=== PATIENT | male | born 1935 | race Caucasian/White ===

== ENCOUNTER → 2018-01-06 | Outpatient (CLI) | payer OTHER ==
[~2018-01-06] MED LIST: ALTACE1.25 MG; ALTACE5 M1 PO; AMBEREN; AMITRIPTYLINE H50 M2 PO; ASPIRIN325 PO; AUGMENTIN 875875 MG PO; AVEED750 MG/3 M; BUPRENORPHIN-N1 EACH SL; CALCIUM + VITA1 EACH; CELEXA 20 MG TA20 M1 PO; CHOLESTROL MED; COLACE100 MG PO; CRESTOR10 MG PO; DEPOTESTOSTERONE IJ; FINASTERIDE; FISH OIL 1,001000 M2 PO; GABAPENTIN 100100 MG PO; GABAPENTIN PO; GLUCOPHAGE XR500 MG PO; GLUMETZA500 PO; LEVOTHYROXIN0.075 MG PO; LEVOTHYROXINE0.05 MG PO; LIPITOR 20 MG T20 M1 PO; METFORMIN HCL500 MG PO; METHADONE HCL 110 M1 PO; METHADONE HCL 110 MG PO; METHADONE HCL40 MG PO; METHADONE HCL5 MG PO; METHADOSE10 MG PO; MIRALAX17 G1 PO; MIRALAX255 GM; NEURONTIN 300300 M1 PO; OMEGA-3 FISH O1 EAC3 PO; OXYCODONE-ACET1 EAC2 PO; PERCOCET; PERCOCET 10-321 EACH PO; PERCOCET 5-3251 EACH PO; PLAVIX 75 MG TA75 MG PO; PROSCAR 5MG TABL5 MG PO; PROTONIX40 M1 PO; REQUIP 1 MG TABL1 M1 PO; REQUIP0.5 MG PO; RESTORIL15 MG PO; SIMVASTATIN40 MG PO; SIMVASTATIN80 MG PO; SKELAXIN 800 M800 M1 PO; TEGRETOL XR100 MG PO; TOPAMAX 25 MG T25 M1 PO; TOPROL XL50 MG PO; TRAZADONE PO; TRAZODONE HCL100 MG PO; TRAZODONE HCL50 MG PO; TYLENOL325 MG PO; VENTOLIN HFA 1818 GM INH; VITAMIN D400 UNI1 PO; VYTORIN 10-801 EACH PO; WELLBUTRIN SR150 MG PO
--- NOTE | ~2018-01-06 | 2DMMODE ---
[facility] [place] [address] 2 D/M-MODE ECHOCARDIOGRAM Name: REGANSTORM [place] Room #: REG [facility]#: [id number] Admission: 01/06/18 Attend Phys: David Langford MD Discharge: Date of : 39 Date of Service: 01/06/18 1557 Report #: [id number] THIS REPORT FOR: //name// APPROVED REPORT Study performed: 01/06/2018 15:03:23 EXAM: Comprehensive 2D, Doppler, and color-flow Echocardiogram Patient Location: Echo lab Status: routine BSA: 1.98 HR: 81 bpm BP: 140/91 mmHg Other Information Study Quality: Adequate Indications CAD 2D Dimensions RVDd: 37.27 mm IVSd: 11.95 (7-11mm) LVOT Diam: 25.22 (18-24mm) LVDd: 38.67 mm PWd: 10.86 (7-11mm) Ascending Ao: 34.89 (22-36mm) LVDs: 27.94 (25-40mm) Aortic Root: 38.82 mm IVC: 9.00 mm Volumes Left Atrial Volume (Systole) Single Plane 4CH: 26.54 mL Single Plane 2CH: 43.84 mL LA ESV Index: 20.00 mL/m2 Aortic Valve AoV Peak Mj.: 0.89 m/s AO Peak Gr.: 3.15 mmHg LVOT Max P.15 mmHg LVOT Max V: 0.73 m/s PRESTON Vmax: 4.12 cm2 Mitral Valve E/A Ratio: 0.8 MV Decel. Time: 174.05 ms MV E Max Mj.: 0.55 m/s MV A Mj.: 0.66 m/s [facility] [address] [address] 2 D/M-MODE ECHOCARDIOGRAM Name: REGAN,STORM [place] Room #: REG [facility]#: [id number] Admission: 01/06/18 Attend Phys: David Langford MD Discharge: Date of : 39 Date of Service: 01/06/18 1557 Report #: [id number] PHT: 50.48 ms IVRT: 156.86 ms Pulmonary Valve PV Peak Mj.: 0.83 m/s PV Peak Gr.: 2.77 mmHg Pulmonary Vein P Vein S: 0.63 m/s P Vein A: 0.13 m/s P Vein D: 0.30 m/s P Vein A Dur.: 92.3 msec P Vein S/D Ratio: 2.10 Tricuspid Valve TR Peak Mj.: 2.58 m/s RAP Estimate: 5.00 mmHg TR Peak Gr.: 26.53 mmHg PA Pressure: 32.00 mmHg Left Ventricle The left ventricle is normal size. There is normal left ventricular wall thickness. The left ventricular systolic function is normal. The left ventricular ejection fraction is within the normal range. LVEF is 55-60%. Transmitral Doppler flow pattern suggests impaired LV relaxation. Right Ventricle The right ventricle is normal size. The right ventricular systolic function is normal. Atria The left atrium size is normal. Right atrium is at the upper limits of normal. Aortic Valve The Aortic valve is mildly sclerotic. No aortic regurgitation is present. There is no aortic valvular stenosis. Mitral Valve The mitral valve is normal in structure. Mild mitral regurgitation. No evidence of mitral valve stenosis. Tricuspid Valve The tricuspid valve is normal in structure. Mild to moderate tricuspid regurgitation. PAP is estimated at 32 mmHg. Pulmonic Valve Pulmonic valve is not well visualized. Trace to mild pulmonic regurgitation. [address] [address] 2 D/M-MODE ECHOCARDIOGRAM Name: STORM SPEARS [place] Room #: REG [facility]#: [id number] Admission: 01/06/18 Attend Phys: David Langford MD Discharge: Date of : 39 Date of Service: 01/06/18 1557 Report #: [id number] Great Vessels Aortic root is mildly dilated at 3.9 cm. IVC is normal in size and collapses >50% with inspiration. Pericardium There is no pericardial effusion. <Conclusion> The left ventricle is normal size. There is normal left ventricular wall thickness. The left ventricular systolic function is normal. Transmitral Doppler flow pattern suggests impaired LV relaxation. The right ventricle is normal size. The left atrium size is normal. The Aortic valve is mildly sclerotic. Mild mitral regurgitation. Mild to moderate tricuspid regurgitation. PAP is estimated at 32 mmHg. <ELECTRONICALLY SIGNED> By: David Langford MD 01/06/18 1557 1557 1557 David Langford MD /INF
== END ==
LOC: CV 12-16 10:41
DX: I08.1 Rheumatic disorders of both mitral and tricuspid valves (principal); I25.10 Atherosclerotic heart disease of native coronary artery without angina pectoris

== ENCOUNTER 2018-04-30 19:33 | Emergency (ER) | payer OTHER ==
[~2018-04-30] VITALS: Ht 175.3 cm; Wt 81.7 kg
[2018-04-30 20:04] LABS: ABSOLUTE NEUTROPHILS 4.1 thou/uL (1.4-8.2); BASOPHILS 0.8 % (0.0-2.0); HEMATOCRIT 37.9 % (42.0-52.0); HEMOGLOBIN 12.8 gm/dL (14.0-18.0); LYMPHOCYTES 44.6 % (24.0-44.0); MCH 29.7 pg (26.0-34.0); MCHC 33.8 g/dL (28.0-37.0); MONOCYTES 6.3 % (1.0-8.0); PLATELET COUNT 209 thou/uL (150-400); POLYS 47.3 % (36.0-66.0); RDW 13.1 % (10.5-14.5); WBC 8.7 thou/uL (4.0-11.0)
[2018-04-30 20:05] LABS: ANION GAP 13 mmol/L (7-16); BUN 27 mg/dL (7-18); CALCIUM 9.8 mg/dL (8.5-10.1); CHLORIDE 100 mmol/L (98-107); CO2 24 mmol/L (21-32); CREATININE 1.8 mg/dL (0.7-1.3); GLUCOSE 98 mg/dL (74-106); POTASSIUM 3.7 mmol/L (3.5-5.1); SODIUM 137 mmol/L (136-145)
[2018-04-30 20:12] LABS: SGOT 27 U/L (15-37); SGPT 35 U/L (30-65); TOTAL BILIRUBIN 0.3 mg/dL (<0.1-1.0); TOTAL PROTEIN 7.8 g/dL (6.4-8.2); TROPONIN-I <0.06 ng/mL (<0.06)
[2018-04-30 20:52] VITALS: BP 135/78
--- NOTE | 2018-05-01 08:02 | EKG ---
[address] [address] ELECTROCARDIOGRAM REPORT Name: STORM SPEARS [id number] Admission: 04/30/18 Attend Phys: Discharge: 04/30/18 Date of : 39 Report #: [id number] THIS REPORT FOR: //name// [facility] ED Test Date: 2018-04-30 Test Time: 20:13:10 Pat Name: STORM SPEARS Department: Room: Gender: M Trust Administrator: LIA : 1935 Requested By: Donovan Fan Order Number: [id number] MD: Cam Newton Measurements Intervals [place] Rate: 74 P: 53 NE: 189 QRS: 6 QRSD: 93 T: 36 QT: 550 QTc: 611 Interpretive Statements Sinus rhythm Borderline repolarization abnormality Compared to ECG 08/13/2015 22:18:06 T-wave abnormality no longer present Electronically Signed On 05-01-2018 8:02:33 WEB SITE ADMIN by Cam Newton [email or web address] <ELECTRONICALLY SIGNED> By: Cam Newton MD 05/01/18801 12 12 Cam Newton MD /MATTHIEU
== END 2018-04-30 20:53 | disposition home or self-care (01) ==
LOC: ER 19:33
PROVIDERS: Emergency Medicine
DX: R06.02 Shortness of breath (principal); F32.9 Major depressive disorder, single episode, unspecified; N40.0 Benign prostatic hyperplasia without lower urinary tract symptoms; I10 Essential (primary) hypertension; E78.5 Hyperlipidemia, unspecified; I25.10 Atherosclerotic heart disease of native coronary artery without angina pectoris; E11.9 Type 2 diabetes mellitus without complications; Z95.1 Presence of aortocoronary bypass graft; M19.90 Unspecified osteoarthritis, unspecified site; Z87.891 Personal history of nicotine dependence

== ENCOUNTER → 2019-01-08 | Outpatient (CLI) | payer OTHER ==
--- NOTE | 2019-01-08 15:50 | 2DMMODE ---
[facility] [place] [address] 2 D/M-MODE ECHOCARDIOGRAM Name: REGANSTORM [place] Room #: REG [facility]#: [id number] ������������� Admission: 01/08/19 ������������� Attend Phys: David Langford MD Discharge: ��� ������������� ��� Date of : 39 �������������������� �� Report #: [id number] �������� ��������������������������������������������[id number] THIS REPORT FOR: //name// APPROVED REPORT Study performed: 01/08/2019 14:27:49 EXAM: Comprehensive 2D, Doppler, and color-flow Echocardiogram Patient Location: Echo lab Status: routine BSA: 1.95 HR: 65 bpm Other Information Study Quality: Adequate Indications CAD 2D Dimensions RVDd: 34.94 mm IVSd: 11.94 (7-11mm) LVOT Diam: 21.87 (18-24mm) LVDd: 38.66 mm PWd: 12.19 (7-11mm) Ascending Ao: 35.64 (22-36mm) LVDs: 25.02 (25-40mm) Aortic Root: 38.58 mm IVC: 8.00 mm Volumes Left Atrial Volume (Systole) Single Plane 4CH: 28.10 mL Single Plane 2CH: 63.77 mL LA ESV Index: 24.00 mL/m2 Aortic Valve AoV Peak Mj.: 0.82 m/s AO Peak Gr.: 2.67 mmHg LVOT Max P.09 mmHg LVOT Max V: 0.72 m/s PRESTON Vmax: 3.32 cm2 Mitral Valve E/A Ratio: 0.8 MV Decel. Time: 281.15 ms MV E Max Mj.: 0.55 m/s MV A Mj.: 0.68 m/s [facility] [address] [place] [address] 2 D/M-MODE ECHOCARDIOGRAM Name: JEN SPEARSACE JT Room #: REG [facility]#: [id number] ������������� Admission: 01/08/19 ������������� Attend Phys: David Langford MD Discharge: ��� ������������� ��� Date of : 39 �������������������� �� Report #: [id number] �������� ��������������������������������������������[id number] MV PHT: 81.53 ms IVRT: 170.70 ms Pulmonary Valve PV Peak Mj.: 0.78 m/s PV Peak Gr.: 2.44 mmHg Pulmonary Vein P Vein S: 0.74 m/s P Vein A: 0.29 m/s P Vein D: 0.36 m/s P Vein A Dur.: 124.6 msec P Vein S/D Ratio: 2.06 Tricuspid Valve TR Peak Mj.: 2.36 m/s TR Peak Gr.: 22.35 mmHg Left Ventricle The left ventricle is normal size. Mild concentric left ventricular hypertrophy. The left ventricular systolic function is normal. The left ventricular ejection fraction is within the normal range. LVEF is 55-60%. Mild diastolic dysfunction is present (impaired relaxation pattern). Right Ventricle Right ventricle is dilated. The right ventricular systolic function is normal. Atria The left atrium size is normal. Right atrium is mildly dilated. Aortic Valve Mild aortic valve sclerosis. No aortic regurgitation is present. There is no aortic valvular stenosis. Mitral Valve The mitral valve is normal in structure. Mild to moderate mitral regurgitation. No evidence of mitral valve stenosis. Tricuspid Valve The tricuspid valve is normal in structure. Moderate tricuspid regurgitation. PAP is estimated at 27-32 mmHg. Pulmonic Valve The pulmonary valve is normal in structure. Trace pulmonic regurgitation. [facility] [place] [address] [place] [address] 2 D/M-MODE ECHOCARDIOGRAM Name: STORM SPEARS [place] Room #: REG [facility]#: [id number] ������������� Admission: 01/08/19 ������������� Attend Phys: David Langford MD Discharge: ��� ������������� ��� Date of : 39 �������������������� �� Report #: [id number] �������� ��������������������������������������������[id number] Great Vessels Aortic root is mildly dilated at 3.9 cm. IVC is normal in size but only visualized with deep inspiration, unable to visualize collapse. Pericardium There is no pericardial effusion. <Conclusion> The left ventricle is normal size. Mild concentric left ventricular hypertrophy. The left ventricular systolic function is normal. Mild diastolic dysfunction is present (impaired relaxation pattern). Right ventricle is dilated. Mild aortic valve sclerosis. Mild to moderate mitral regurgitation. Moderate tricuspid regurgitation. PAP is estimated at 27-32 mmHg. ��������������������������������������������� <ELECTRONICALLY SIGNED> ���������������������������������������� By: David Langford MD ��������������������������������������������� 01/08/19 [phone] David Langford MD /INF
== END ==
LOC: CV 09:28
DX: I08.3 Combined rheumatic disorders of mitral, aortic and tricuspid valves (principal); I25.10 Atherosclerotic heart disease of native coronary artery without angina pectoris

== ENCOUNTER → 2020-01-01 | Outpatient (CLI) | payer MEDICARE | LOC: SJCVCIMAG 07:43 | PROVIDERS: ATTEND Internal Medicine Cardiovascular Disease | DX: I25.810 Atherosclerosis of coronary artery bypass graft(s) without angina pectoris (principal); I10 Essential (primary) hypertension; R60.9 Edema, unspecified; E78.00 Pure hypercholesterolemia, unspecified; Z79.82 Long term (current) use of aspirin; Z79.899 Other long term (current) drug therapy; E78.5 Hyperlipidemia, unspecified; Z87.891 Personal history of nicotine dependence; E11.9 Type 2 diabetes mellitus without complications; Z95.1 Presence of aortocoronary bypass graft ==

== ENCOUNTER 2020-02-03 06:37 | Inpatient (IN) | payer OTHER ==
[~2020-02-03] VITALS: Ht 175.3 cm; Wt 79.4 kg
--- NOTE | ~2020-02-03 | HC ---
[facility] [place] [address] CONSULTATION Name: STORM SPEARS Room #: 210-P ADM IN M.R.#: [id number] Admission: 02/03/20 Attend Phys: Kali Dunn MD Discharge: Date of : 39 Report #: [id number] THIS REPORT FOR: cc: Evelyn Winkler MD, Jennifer S. MD Khosla,Asaf Ang MD ~ DATE OF SERVICE: 02/04/2020 HISTORY OF PRESENT ILLNESS: This is an 84-year-old male patient who was evaluated by me for altered mental status. I reviewed the records in the patient's computer and I called and talked to Dr. Dunn, the admitting physician. There are multiple notes in the computer and I reviewed that to some extent. It looks like this patient came to Emergency Room with shortness of breath. Neurological consultation is requested because he also has altered mental status. He is also being seen by Cardiology for the time being. Some of the records indicate he has a dementia in the baseline. He also has narcotic dependence. The notes of pain management were reviewed in that regard. 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 He has trouble with narcotics and he has been on methadone and there also has been problem with methadone in this patient. He does have history of headache. He could not provide much rest of the history and I could get it only from the record. Looks like he has atrial fibrillation and for which, Cardiology has been consulted. He has a prior history of coronary artery disease and dyspnea. He has a history of hypertension. He takes metformin for the diabetes. He has baseline gait instability and he has a history of spinal stenosis. He lives with multiple family members. PAST MEDICAL HISTORY: Positive for spinal stenosis, for which, he takes methadone. FAMILY HISTORY: Unremarkable. SOCIAL HISTORY: The patient lives with multiple members of the family in an apartment. He does not drink any alcohol. PHYSICAL EXAMINATION: Indicates he is alert. He is responsive. It takes him long time to answer questions. He could not tell me the exact date, but he knew the month. It took him a while to name the president and took him some time to tell me what hospital he is in. In spite of his history of pituitary tumor, his cranial nerve examination including visual field looks unremarkable. He moves all 4 extremities. I tried to do position sense on him. He did not understand the instructions most of the time. He did cerebellar sign, but I could not look [facility] [address] [place] [address] CONSULTATION Name: STORM SPEARS [place] Room #: 210-P [facility] IN M.R.#: [id number] Admission: 02/03/20 Attend Phys: Kali Dunn MD Discharge: Date of : 39 Report #: [id number] at the patient's fundus. There is no meningeal sign. I tried to do the reflexes. He could not relax. I do not know why he was so tense. Cardiac examination indicates he has been diagnosed with atrial fibrillation. No respiratory difficulty was noticed. His blood pressure is 137/76, respiration 16, pulse 71, temperature is 97.4. LABORATORY DATA: White count is 6.7. He did have no imaging study in the brain. IMPRESSION AND PLAN: I discussed with him that he does appear to have cognitive deficit. I will go ahead and do an MRI. He already got contrast multiple times, so I will do it without contrast. We will see if it shows any pathology or whether the patient is developing dementia. He will need further workup for one way or another, but main management still is going to be the management of his cardiac conditions including atrial fibrillation, which is being done by other physician. More than 50 minutes of time was spent taking care of this patient today and majority of that time was spent counseling and coordinating. By: 1243 1405 Asaf Nascimento MD /nt
--- NOTE | ~2020-02-03 | EMS ---
[facility] [address] [place] [address] EMS Patient Care Report Name: STORM SPEARS Room #: 210-P [facility] IN M.R.#: [id number] Admission: 02/03/20 Attend Phys: Kali Dunn MD Discharge: 02/06/20 Date of : 37 Report #: [id number] THIS REPORT FOR: //name// Report Transmitted: 02/07/2020 20:47 EMS Care Summary [place], [place]/[facility] Incident [id number] @ 02/03/2020 05:34 Incident Location [address] [place] [address] Patient LIANET SPEARS Male, 84 Years 1935 Patient Address [address] [place] [address] Patient History Brain Tumor, Patient Allergies No known allergies, Patient Medications Tylenol, Metoprolol, Percocet, Methadone, Chief Complaint Rapid atrial fib Disposition Transported No Lights/[place] Dispatch Reason Breathing Problem Transported To [facility] Narrative Called to the scene for SOB. Upon arrival, P43 on the scene. Pt was ELLISON x 3 lying in bed, pale and c/o being weak and SOB. He also stated he has a [facility] [address] [place] [address] EMS Patient Care Report Name: STORM SPEARS Room #: 210-P DIS IN Rafa.#: [id number] Admission: 02/03/20 Attend Phys: Kali Dunn MD Discharge: 02/06/20 Date of : 37 Report #: [id number] headache. He said he was fine when he went to bed and woke up this way. He said he has a brain tumor that they are no longer treating other than with pain management. He requested transport to [facility]. Pt was moved to the EMS cot and loaded into the ambulance w/o incident. Vitals obtained. 12 Lead showed rapid a-fib with no ST elevation. The A-fib would convert on its own. 18g IV and D-stick. Vitals repeated. O2 cont. En route: pt would go in and out of rapid A-fib, he did convert on his own. RR to [facility] ER. Arrived: pt taken to ER #6 and moved to their bed w/o incident. Pt care & report to ER staff. Initial Vitals @06:14Glucose: 125, @06:11P: 282,CO: 0,SpO2: 98, @06:05P: 271, @06:08P: 76, @06:15P: 162,SpO2: 99, @06:02P: 166,SpO2: 84, @06:23P: 163,R: 16,BP: 175/106,Pain: 0/10,GCS: 15,CO: 0,SpO2: 100,Revised Trauma: 12,NH Suspected: false @06:04P: 86,R: 14,BP: 148/89,Pain: 0/10,GCS: 15,SpO2: 92,Revised Trauma: 12, @06:05P: 191,GCS: 15,SpO2: 99,NH Suspected: false @06:08P: 73,R: 16,BP: 160/87,Pain: 0/10,GCS: 15,SpO2: 100,Revised Trauma: 12,NH Suspected: false @06:20P: 182,CO: 0,SpO2: 98, @06:16P: 173,SpO2: 98, Assessments @05:52MENTAL:Person Oriented,Time Oriented,Event Oriented,Place Oriented,SKIN:Pale,HEENT:LUNG SOUNDS:ABDOMEN:PELVIS//GI:EXTREMITIES:Left Arm: No Abnormalities,Right Arm: No Abnormalities,Left Leg: No Abnormalities,Right Leg: No Abnormalities,PULSE:Radial: 1+ Thready,NEURO:No Abnormalities, Impression Acute Respiratory Distress (Dyspnea) Procedures @05:52ALS AssessmentResponse: UnchangedSucceeded@06:00StretcherResponse: Unchanged@PTAOxygen FlowRate: 4 Device: Nasal Cannula (NC) Response: ImprovedSucceeded@06:033-Lead ECGResponse: UnchangedSucceeded@06:0812-Lead ECGResponse: UnchangedSucceeded@06:0512-Lead ECGResponse: UnchangedSucceeded@06:12Saline Lock 8cc (18 ga) Site: Antecubital-LeftResponse: UnchangedSucceeded@06:10Saline Lock cc (18 ga) Site: Antecubital-LeftResponse: UnchangedFailed Timeline MATERIAL INSPECTOR,Oxygen FlowRate: 4 Device: Nasal Cannula (NC) Response: ImprovedSucceeded, 05:33,Call Received [address] [address] EMS Patient Care Report Name: JEN SPEARSACE [place] Room #: 210-P [facility] IN M.R.#: [id number] Admission: 02/03/20 Attend Phys: Kali Dunn MD Discharge: 02/06/20 Date of : 39 Report #: [id number] 05:33,Dispatch Notified 05:34,Dispatched 05:35,En Route 05:50,On Scene 05:52,At Patient 05:52,ALS Assessment,Response: UnchangedSucceeded, 06:00,Stretcher,Response: Unchanged 06:02,BP: / M,PULSE: 166,RR: R,SPO2: 84 Ox,ETCO2: ,BG: ,PAIN: ,GCS: , 06:03,3-Lead ECG,Response: UnchangedSucceeded, 06:04,BP: 148/89 M,PULSE: 86,RR: 14 R,SPO2: 92 Ox,ETCO2: ,BG: ,PAIN: 0,GCS: 15, 06:05,12-Lead ECG,Response: UnchangedSucceeded, 06:05,BP: / M,PULSE: 191,RR: R,SPO2: 99 Ox,ETCO2: ,BG: ,PAIN: ,GCS: 15, 06:05,BP: / M,PULSE: 271,RR: R,SPO2: Ox,ETCO2: ,BG: ,PAIN: ,GCS: , 06:08,BP: 160/87 M,PULSE: 73,RR: 16 R,SPO2: 100 Ox,ETCO2: ,BG: ,PAIN: 0,GCS: 15, 06:08,12-Lead ECG,Response: UnchangedSucceeded, 06:08,BP: / M,PULSE: 76,RR: R,SPO2: Ox,ETCO2: ,BG: ,PAIN: ,GCS: , 06:10,Saline Lock cc 18 ga Site: Antecubital-Left,Response: UnchangedFailed, 06:11,BP: / M,PULSE: 282,RR: R,SPO2: 98 Ox,ETCO2: ,BG: ,PAIN: ,GCS: , 06:12,Saline Lock 8cc 18 ga Site: Antecubital-Left,Response: UnchangedSucceeded, 06:14,BP: / M,PULSE: ,RR: R,SPO2: Ox,ETCO2: ,B,PAIN: ,GCS: , 06:15,Depart Scene 06:15,BP: / M,PULSE: 162,RR: R,SPO2: 99 Ox,ETCO2: ,BG: ,PAIN: ,GCS: , 06:16,BP: / M,PULSE: 173,RR: R,SPO2: 98 Ox,ETCO2: ,BG: ,PAIN: ,GCS: , 06:20,BP: / M,PULSE: 182,RR: R,SPO2: 98 Ox,ETCO2: ,BG: ,PAIN: ,GCS: , 06:23,BP: 175/106 M,PULSE: 163,RR: 16 R,SPO2: 100 Ox,ETCO2: ,BG: ,PAIN: 0,GCS: 15, 06:46,At Destination 06:55,Call Closed Disclaimer v1.1 Copyright 2020 [employer] This EMS Care Summary contains data elements from the applicable legal record (which may be displayed differently). It is designed to provide pertinent information for the following purposes: continuity of care, clinical quality, and state data reporting. The complete legal record is available to ED staff and administrators of the receiving hospital in [employer]'s Patient Tracker. All data is provided "as is."
[2020-02-03 06:38] VITALS: BP 143/86
[2020-02-03] MEDS ORDERED: DONEPEZIL HCL 55 M1 PO (06:52)
[2020-02-03] MEDS ORDERED: SERTRALINE HCL50 MG PO (06:53)
[2020-02-03] MEDS ORDERED: GLUMETZA500 PO (06:58)
[2020-02-03] MEDS ORDERED: GLUCOPHAGE1000 MG PO (06:58)
[2020-02-03] MEDS ORDERED: QUETIAPINE FUMA25 MG PO (06:59)
[2020-02-03] MEDS ORDERED: METHADONE HCL 110 MG PO (07:00)
[2020-02-03 07:01] LABS: HEMATOCRIT 33.7 % (42.0-52.0); HEMOGLOBIN 11.1 gm/dL (14.0-18.0); MCH 29.5 pg (26.0-34.0); MCV 89.6 fL (80.0-100.0); RBC 3.76 mil/uL (4.50-6.00); RDW 13.3 % (10.5-14.5); WBC 6.6 thou/uL (4.0-11.0)
[2020-02-03 07:20] LABS: ANION GAP 13 mmol/L (7-16); BUN 25 mg/dL (7-18); CALCIUM 9.9 mg/dL (8.5-10.1); CHLORIDE 102 mmol/L (98-107); CO2 25 mmol/L (21-32); CREATININE 1.6 mg/dL (0.7-1.3); GLUCOSE 118 mg/dL (74-106); POTASSIUM 3.8 mmol/L (3.5-5.1); SODIUM 140 mmol/L (136-145)
[2020-02-03 07:28] LABS: TROPONIN-I <0.06 ng/mL (<0.06)
--- NOTE | 2020-02-03 07:40 | NUR ---
PT & REPORTED TO REGISTRATION THAT PT COPER HAND'S LICENSE AND INS CARD WERE GIVEN TO EMS. 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 CARDS WERE NOT FOUND. EMS CALL CENTER NOTIFIED. SANJUANITA AT EMS CALL CENTER RETURNED CALL, STATED THAT PER EMS THEY WERE GIVEN WALLET, STATES THEY NEVER REMOVED ITEMS AND RETURNED WALLET TO PT. PATIENT'S HAS WALLET IN HER PURSE AT BEDSIDE. ENCOURAGED PATIENT AND TO CHECK ALL POCKETS, PURSE, AND WALLET. THEY STATE THAT THEY KNOW CARDS ARE NOT THERE. ASKED IF POSSIBLE THAT CARDS MAY HAVE BEEN SET DOWN AT HOME OR IF RETURNED AND IN CAR THAT DROVE? ADAMANT THAT CARDS ARE NOT THERE. CONTINUED TO ENCOURAGE THEM TO LOOK IN PERSONAL BELONGINGS FOR CARDS.
[2020-02-03 07:56] LABS: APTT 30.6 Seconds (24.5-32.8); INR 1.1; PROTIME 11.1 Seconds (9.3-11.4)
[2020-02-03 09:52] VITALS: BP 162/93
--- NOTE | 2020-02-03 10:50 | 2DMMODE ---
[facility] [place] [address] 2 D/M-MODE ECHOCARDIOGRAM Name: STORM SPEARS Room #: 210-P ADM IN M.R.#: [id number] Admission: 02/03/20 Attend Phys: Kali Dunn MD Discharge: Date of : 39 Report #: [id number] THIS REPORT FOR: cc: Evelyn Winkler MD, Jennifer S. MD Park, Jin S. MD ~ APPROVED REPORT Study performed: 02/03/2020 09:46:10 EXAM: Comprehensive 2D, Doppler, and color-flow Echocardiogram Patient Location: ER Status: routine BSA: 1.98 HR: 72 bpm BP: 162/93 mmHg Rhythm: NSR Other Information Study Quality: Adequate Technically limited study due to lots of patient movement. Indications Possible Afib. Hx: CABG, stents, HTN, HLP, DM. 2D Dimensions RVDd: 34.32 mm IVSd: 9.68 (7-11mm) LVOT Diam: 19.71 (18-24mm) LVDd: 48.33 mm PWd: 8.88 (7-11mm) Ascending Ao: 36.25 (22-36mm) LVDs: 31.70 (25-40mm) Aortic Root: 38.70 mm Volumes Left Atrial Volume (Systole) Single Plane 4CH: 35.54 mL Single Plane 2CH: 41.13 mL LA ESV Index: 21.00 mL/m2 Aortic Valve AoV Peak Mj.: 0.94 m/s AO Peak Gr.: 3.55 mmHg LVOT Max P.68 mmHg [facility] [address] [place] [address] 2 D/M-MODE ECHOCARDIOGRAM Name: STORM SPEARS [place] Room #: 210-P [facility] IN [facility]#: [id number] Admission: 02/03/20 Attend Phys: Kali Dunn MD Discharge: Date of : 39 Report #: [id number] LVOT Max V: 0.82 m/s PRESTON Vmax: 2.65 cm2 Mitral Valve E/A Ratio: 0.7 MV Decel. Time: 321.36 ms MV E Max Mj.: 0.57 m/s MV A Mj.: 0.77 m/s MV PHT: 93.19 ms IVRT: 89.97 ms Pulmonary Valve PV Peak Mj.: 0.79 m/s PV Peak Gr.: 2.52 mmHg Pulmonary Vein P Vein S: 0.71 m/s P Vein A: 0.26 m/s P Vein D: 0.56 m/s P Vein A Dur.: 115.3 msec P Vein S/D Ratio: 1.27 Tricuspid Valve TR Peak Mj.: 2.39 m/s TR Peak Gr.: 23.00 mmHg Left Ventricle The left ventricle is normal size. There is normal LV segmental wall motion. There is normal left ventricular wall thickness. Left ventricular systolic function is normal. LVEF is 55-60%. Mild diastolic dysfunction is present (impaired relaxation pattern). Right Ventricle The right ventricle is normal size. The right ventricular systolic function is normal. Atria The left atrium size is normal. The right atrium size is normal. Aortic Valve The aortic valve is normal in structure; mildly calcified. No aortic regurgitation is present. There is no aortic valvular stenosis. Mitral Valve Mitral valve leaflets are midly calcified. Moderate mitral regurgitation. [facility] [place] [address] 2 D/M-MODE ECHOCARDIOGRAM Name: STORM SPEARS [place] Room #: 210-P [facility] IN M.R.#: [id number] Admission: 02/03/20 Attend Phys: Kali Dunn MD Discharge: Date of : 39 Report #: [id number] Tricuspid Valve The tricuspid valve is normal in structure. Mild to moderate tricuspid regurgitation. Estimated PAP is 25mmHg plus the right atrial pressure. Pulmonic Valve The pulmonary valve is normal in structure. Mild pulmonic regurgitation. Great Vessels Aortic root is mildly dilated (3.9cm). The ascending aorta is normal in size. IVC is not well visualized. Pericardium There is no pericardial effusion. <Conclusion> The left ventricle is normal size. Left ventricular systolic function is normal. Mild diastolic dysfunction is present (impaired relaxation pattern). The right ventricle is normal size. The left atrium size is normal. The aortic valve is normal in structure; mildly calcified. Moderate mitral regurgitation. Mild to moderate tricuspid regurgitation. Estimated PAP is 25mmHg plus the right atrial pressure. <ELECTRONICALLY SIGNED> By: David Langford MD 02/03/201049 49 49 David Langford MD /INF
[2020-02-03 11:16] VITALS: BP 144/94
--- NOTE | 2020-02-03 12:05 | NUR ---
NEW ADMIT FROM ED FOR CHEST PAIN AND SOB. PT ALERT TO SELF AND PLACE, HX OF DEMENTIA, CHRONIC HEADACHES. UP WITH AX1 TO BATHROOM. FALL PRECATIONS IN PLACE. DENIES CHEST PAIN, DENIES SOB. ADMISSION COMPLETED, CONSCENT SIGNED, BED ALARM SET. CALL LIGHT IN REACH.
--- NOTE | 2020-02-03 12:07 | EKG ---
[facility] [place] [address] ELECTROCARDIOGRAM REPORT Name: STORM SPEARS Room #: 210-P ADM IN M.R.#: [id number] Admission: 02/03/20 Attend Phys: Kali Dunn MD Discharge: Date of : 39 Report #: [id number] THIS REPORT FOR: cc: Evelyn Winkler MD, Jennifer S. 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 : 1935 Requested By: Kali Dunn Order Number: [id number] MD: Emigdio Simpson Measurements Intervals [place] Rate: 74 P: MS: QRS: 26 QRSD: 98 T: 26 QT: 402 QTc: 446 Interpretive Statements NSR, artifact Nonspecific T abnormalities, anterior leads Baseline wander in lead(s) V4 Compared to ECG 04/30/2018 20:13:10 T-wave abnormality now present Electronically Signed On 02-03-2020 12:06:54 CDT by Emigdio Simpson [email or web address] <ELECTRONICALLY SIGNED> By: Emigdio Simpson MD, FACC 02/03/20 1206 0643 Emigdio Simpson MD, FACC /EPI
[2020-02-03 15:32] VITALS: BP 139/88
--- NOTE | 2020-02-03 16:04 | NUR ---
Patient admits with SOA. Patient with inoperable brain tumor. at bedside. patient and live in independent apt with option of ramp or steps to enter. reports he usually does steps for excercise. Patient uses a cane for ambulation. reports her sister living with her and her dtr in law with grandson. She reports 5 people in apt with 2 cats and dog. drives. Patient independent with bathing and dressing. reports patient could use assistance with bathing. No bathbench but do have grabbar. Patient may benefit from therapy evals prior to dc home. PCP Dr Plunkett from [facility].
[2020-02-03 19:20] VITALS: BP 127/90
--- NOTE | 2020-02-04 03:29 | NUR ---
ASSESSMENTS CHARTED, MEDS CHARTED GIVEN. PATIENT RESTING IN BED DURING SHIFT. PATIENT STILL HAVING TREMORS. PATIENT RECEIVED MULTIPLE METHADONE DOSES TODAY. HE HAD RUN OUT OF HOME DOSES. DENIES PAIN. FALL PRECAUTIONS IN PLACE DURING SHIFT.
[2020-02-04 04:30] VITALS: BP 119/80
[2020-02-04 07:10] VITALS: BP 142/80
[2020-02-04 09:34] LABS: HEMATOCRIT 35.3 % (42.0-52.0); HEMOGLOBIN 11.5 gm/dL (14.0-18.0); MCH 29.5 pg (26.0-34.0); MCHC 32.5 g/dL (28.0-37.0); MCV 90.6 fL (80.0-100.0); RBC 3.9 mil/uL (4.50-6.00); WBC 6.7 thou/uL (4.0-11.0)
[2020-02-04 09:47] LABS: CREATININE 1.4 mg/dL (0.7-1.3); MAGNESIUM 1.3 mg/dL (1.8-2.4); POTASSIUM 3.4 mmol/L (3.5-5.1)
[2020-02-04 12:12] VITALS: BP 137/76
[2020-02-04 15:18] VITALS: BP 157/93
--- NOTE | 2020-02-04 16:01 | NUR ---
ASSUMED CARE AT CHANGE OF SHIFT. ALERT X3 FORGETFUL, CHRONIC PAIN MANAGE WITH SCHEDULED MEDICATIONS, NSR ON TELE. NOTED ELEVATED HEART RATE WORKING WITH THERAPY, NOTIFIED PHYSICIAN. UP WITH AX1 WITH GATE BELT AND CANE. MRI COMPLETED SEE REPORT. SLIGHT TREMORS THIS MORNING. PRN 2L NASAL CANNULA. PT VOICED HE DID NOT SLEEP MUCH LAST NIGHT. CALL LIGHT AND PERSONAL ITEMS IN REACH. REMAINS ON FALL PRECAUTIONS. REPORTED OF TO MIREYA NAVARRETE.
--- NOTE | 2020-02-04 18:56 | NUR ---
ASSUMED CARE OF PATIENT APPROX 1300. PT A&OX4, VSS, NO PAIN. PATIENT SAT AT 98% ON ROOM AIR. SR ON TELE MONITOR. AT BEDSIDE. NO C/O SOA OR CHEST PAIN. NO SIGNS OF DISTRESS. WILL CONTINUE TO MONITOR.
[2020-02-04 20:15] VITALS: BP 143/89
[2020-02-05] VITALS (9 sets, daily range): BP systolic 111–128; BP diastolic 70–81
--- NOTE | 2020-02-05 02:23 | NUR ---
ASSUMED CARE OF PATIENT AT 1900. PATIENT DENIES CHEST PAIN OR SOA ASSESSMENTS UNREMARKABLE. PATIENT CALLS APPROPRIATELY AND IS SBA WITH CANE TO AMBULATE.
--- NOTE | 2020-02-05 13:57 | NUR ---
Pooling Operator visited with the pt and his spouse at bedside. The attending has consulted acute rehab d/t recent falls, weakness and pituitary tumor growth. Pt's does not feel he is strong enough to return directly home and would support him going to acute rehab. [facility] is out of network. Referrals called and faxed to [facility] and [facility]. [facility] is in network and is evaling him. If they can accept they will submit for auth. SNF and HH options also reveiwed with them. SNF is not an option as they are not allowing visitors d/t the pandemic. HH would be acceptable and they would prefer [facility] if they accept the ins plan. DC marketing planner to check with [facility] for possible HH referral if acute rehab is denied. ENDO consult pending this afternoon. The pt's gdtr is staying with them and could provide some supervision while his is at work should they end up going home with hh.
--- NOTE | 2020-02-05 15:27 | NUR ---
FAXED REFERRAL TO [facility] SPOKE WITH ANJELICA IN ADM SHE RECEIVED REFERRAL AND WILL ACCEPT AND WILL SUBMIT FOR AUTH. [facility] IS AT CAPACITY AT PT'S HOME LOCATION.
--- NOTE | 2020-02-05 16:46 | NUR ---
RECEIVED PT'S CARE AROUND 0735; PT. ON BED; RESTING WITH EYES CLOSED; EQUAL CHEST RISING NOTICIED; SR ON THE MONITOR; DURING AM ASSESSMENT PT. AOX4; NO C/O PAIN; EATING & DRINKING; PHYSICIAN NOTIFIED; FLUIDS D/C; PER PHYSICIAN PT. MIGHT NEED REHAB OR SNIF; CONSULT FOR DR. BERNSTEIN ON PLACED; DURING THE AFTERNOON PT'S NOTIFIED NURSE THAT PT. DOES NOT WANT SNIF OR REHAB & [facility]; SHEET METAL ERECTOR AND PHYSICIAN NOTIFIED; NO NEW ORDERS; PER PHYSICIAN PT. WILL BE D/C LATER ON THE DAY; PT. & NOTIFIED; ST. UNDERSTANDING; ASSESSMENT CHARGED; FOLLOWING POC; WILL WORK ON D/C PAPERS WHEN ORDER ON PLACED;
--- NOTE | 2020-02-05 17:46 | NUR ---
Rec'd call from unit RN indicating pt is refusing acute rehab and wants to go home with hh. agreeable. [facility] notified to cancel auth request. Hh referral send to [facility] as [facility] is not able to staff it. Karl cruz to fax orders in am. Pt dcing home this evening with his .
[2020-02-05 20:06] LABS: CORTISOL RANDOM 6.2 ug/dL (()); LUTEINIZING HORMONE (LH) 0.6 mIU/mL (1.7-8.6); PROLACTIN 11.8 ng/mL (4.0-15.2)
[2020-02-05 21:05] LABS: TESTOSTERONE* < 3 ng/dL (264-916)
[2020-02-06 04:45] VITALS: BP 117/65
--- NOTE | 2020-02-06 06:39 | NUR ---
pt resting off and on thru the noc, voiding per urinal, scheduled methadone given for pain, vss, hopes to go home today, will con't to monitor per ppoc.
[2020-02-06 07:45] VITALS: BP 111/65
[2020-02-06] MEDS ORDERED: METOPROLOL SUCC50 MG PO (09:14)
[2020-02-06 09:30] VITALS: BP 102/62; BP 103/64; BP 90/59
--- NOTE | 2020-02-06 11:53 | NUR ---
ASSUMMED PT CARE AT APPROXIMATELY 0700. PT A&O X4. ASSESSMENT CHARTED. FALL PRECAUTIONS IN PLACE. PT DENIES HAVING CHEST PAIN. PT DENIES HAVING SOB. PT DENIES HAVING ACUTE PAIN. PT DISCHARGING HOME C HOME HEALTH. DISCHARGE EDUCATION AND INFORMATION GIVEN. PT AND PT'S SPOUSE STATED UNDERSTANDING AND DENIED HAVING FURTHER QUESTIONS. VITAL SIGNS STABLE. BLOOD SUGAR STABLE. PT RECEIVING HOSPITAL TRANSPORT OFF UNIT. IV DC. TELE DC. PT COMFORTABLE. PT DENIES HAVING FUTHER CONCERNS.
--- NOTE | 2020-02-06 12:21 | HC ---
[facility] [place] [address] CONSULTATION Name: STORM SPEARS Room #: 210-P ADM IN M.R.#: [id number] Admission: 02/03/20 Attend Phys: Kali Dunn MD Discharge: Date of : 39 Report #: [id number] THIS REPORT FOR: cc: Evelyn Winkler MD, Jennifer S. MD Al-Mubaslat, Ahmad MD ~ DATE OF SERVICE: 02/05/2020 ENDOCRINE CONSULTATION NOTE CONSULTING PHYSICIAN: Dr. Dunn. REASON FOR CONSULTATION: Pituitary mass. HISTORY OF PRESENT ILLNESS: This is an 84-year-old male patient who presented on the day of admission with complaints of shortness of breath as well as cough. He was admitted for further care and monitoring for his immediate complaints as well as his various medical issues. The patient's medical background is significant for a pituitary mass for which he had a surgery, specifically transsphenoidal surgery 15 years ago. His indicates that this was a pituitary adenoma and that he needed replacement with steroids and levothyroxine briefly afterwards, but not lot technician. She also notes that he has been on extended testosterone replacement therapy that was stopped not too long ago by his primary care physician, but could not elaborate on why that stoppage took place. While the patient was being evaluated, brain study uncovered the finding of a pituitary mass and hence this consultation. The patient has not appreciated recent issues with diplopia, loss of vision, visual field defects, nausea, vomiting, imbalance, seizure activity, but he does have chronic issues with severe intermittent headaches for which he receives chronic pain management. The patient has not had major weight changes, excessive sweating, significant shifts in blood pressure control, skin or hair changes, breast tenderness or nipple discharge. REVIEW OF SYSTEMS: CONSTITUTIONAL: Fatigue, tiredness. No weight changes, fever or chills. HEENT: Negative for sore throat, sinus pain or ear drainage. PULMONARY: Shortness of breath and cough without hemoptysis. CARDIAC: Occasional palpitations, lightheadedness, but not syncope or chest pain. GASTROINTESTINAL: Negative for abdominal pain, nausea, vomiting or changes in bowel movement frequency. [facility] [address] [place] [address] CONSULTATION Name: STORM SPEARS [place] Room #: 210-P [facility] IN .R.#: [id number] Admission: 02/03/20 Attend Phys: Kali Dunn MD Discharge: Date of : 37 Report #: [id number] NEUROLOGY: Negative for loss of consciousness, seizure activity, but noted for frequent headaches. Otherwise, his review of systems is noncontributory other than those mentioned in HPI. PAST MEDICAL HISTORY: 1. Pituitary adenoma operated on in 2004. 2. Depression. 3. Benign prostatic hypertrophy. 4. Hypertension. 5. Hyperlipidemia. 6. Chronic headaches. 7. Coronary artery disease, status post stent placements. 8. Type 2 diabetes mellitus. 9. Coronary artery disease, status post coronary artery bypass graft. 10. Degenerative disk disease. 11. History of transient ischemic attack. 12. Osteoarthritis. OUTPATIENT MEDICATIONS: Include donepezil 5 mg daily, Zoloft 50 mg daily, Glucophage 1000 mg daily, methadone 10 mg p.o. t.i.d., Toprol-XL 50 mg daily, calcium plus vitamin D tablets, Colace 200 mg daily, MiraLax 17 grams at bedtime, Protonix 40 mg daily, trazodone 100 mg at bedtime, aspirin 325 mg daily, atorvastatin or Lipitor 20 mg at bedtime, Celexa 20 mg at bedtime, Proscar 5 mg daily, Wellbutrin-SR 75 mg p.o. b.i.d., levothyroxine 75 mcg daily. ALLERGIES: No known drug allergies. FAMILY HISTORY: Noncontributory. SOCIAL HISTORY: The patient denies use of tobacco, alcohol or illicit drugs. PHYSICAL EXAMINATION: GENERAL: Pleasant male patient who is not in apparent pain or distress. He is sitting upright in chair, appears comfortable, not in apparent distress. VITAL SIGNS: Blood pressure is 111/72 mmHg, heart rate is 60 beats per minute, respirations 16 per minute, temperature 36.6 degrees Celsius. CONSTITUTIONAL: He is sitting upright, appears comfortable, not in apparent distress. HEENT: Anicteric sclerae. Intact extraocular motions. NECK: Supple, without JVD or thyromegaly. CHEST: Noted for moderate air entry bilaterally with scattered rales, but not wheezes or crackles. HEART: Regular rate and rhythm without murmurs or gallops. [facility] [address] [place] [address] CONSULTATION Name: STORM SPEARS [place] Room #: 210-P ADM IN M.R.#: [id number] Admission: 02/03/20 Attend Phys: Kali Dunn MD Discharge: Date of : 37 Report #: [id number] ABDOMEN: Soft, lax. No guarding. Active bowel sounds. EXTREMITIES: Lower extremity exam negative for ankle edema or skin breaks. NEUROLOGIC: Awake, alert and oriented to time, place and person. The remainder of his examination is noted for generalized weakness. PSYCHIATRIC: Pleasant, interactive. Normal mood and affect. LABORATORY DATA: Blood glucose values have run between 90 and 186 mg/dL, but predominantly remained under 150 mg/dL. Otherwise, sodium 137, potassium 3.4, chloride 102, CO2 of 24, anion gap 11, BUN 18, creatinine 1.4, glucose 190, AST 27, total bilirubin 0.3, calcium 9.0, magnesium 1.3, alkaline phosphatase 84, ALT 35, total protein 7.8, albumin 4.0. EGFR 49. Total CPK 273. Free T4 is 1.0. Iron 53. INR 1.1. White blood count 6.7, hemoglobin 11.5, hematocrit 35.3, platelets 217. TSH 2.174. 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 His previous MRI done in 02/2015 revealed a right sellar mass seemingly smaller. ASSESSMENT AND PLAN: Pituitary adenoma. As noted above, the patient has a longstanding history of a pituitary mass that was operated on and potentially treated with radiation postoperatively as well. According to the history provided by the patient and his , this appears to have been a nonfunctioning pituitary adenoma, not requiring longstanding hormonal therapy afterwards. During the patient's recent brain MRI, he was found to have a sellar mass. However, this finding was during a generalized brain study that was not pituitary dedicated. I counseled the patient about the pathogenesis of pituitary masses, and their implications as well as about the importance of getting a thorough evaluation on the functional status and the mass effect of such masses. That said, I would like to obtain a pituitary dedicated MRI study to better size this mass and appreciate its connection to surrounding structures, especially his optic chiasm. This pituitary MRI can be done in the inpatient or outpatient setting. Additionally, I would like to obtain a comprehensive pituitary functional assessment including his pituitary thyroid axis, pituitary adrenal axis, pituitary gonadal axis as well as prolactin growth hormone levels. The patient does not appear to be clinically cushingoid and therefore, I will bypass dexamethasone suppression testing or other cortisol excess studies. 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 I certainly appreciate this consultation by Dr. Dunn. <ELECTRONICALLY SIGNED> By: Reyes Michaud MD 02/06/20 1221 1259 1521 Reyes Michaud MD /nt
[2020-02-06 12:29] VITALS: BP 111/72
[2020-02-07 21:05] LABS: GROWTH HORMONE 0.1 ng/mL (0.0-10.0)
== END 2020-02-06 12:30 | disposition home health service (06) | DRG 189 ==
LOC: ER 06:37 → EROBS 08:58 → 2N 08:58
PROVIDERS: Emergency Medicine; Internal Medicine; ADMIT Internal Medicine; ATTEND Internal Medicine
DX: J96.01 Acute respiratory failure with hypoxia (principal); N17.9 Acute kidney failure, unspecified; F11.20 Opioid dependence, uncomplicated; I48.0 Paroxysmal atrial fibrillation; F32.9 Major depressive disorder, single episode, unspecified; N40.0 Benign prostatic hyperplasia without lower urinary tract symptoms; E78.5 Hyperlipidemia, unspecified; M19.90 Unspecified osteoarthritis, unspecified site; D35.2 Benign neoplasm of pituitary gland; I25.10 Atherosclerotic heart disease of native coronary artery without angina pectoris; M48.00 Spinal stenosis, site unspecified; G89.4 Chronic pain syndrome; R25.1 Tremor, unspecified; N18.9 Chronic kidney disease, unspecified; E83.42 Hypomagnesemia; G47.00 Insomnia, unspecified; R29.6 Repeated falls; I12.9 Hypertensive chronic kidney disease with stage 1 through stage 4 chronic kidney disease, or unspecified chronic kidney disease; Z20.828 Contact with and (suspected) exposure to other viral communicable diseases; E11.22 Type 2 diabetes mellitus with diabetic chronic kidney disease; G47.33 Obstructive sleep apnea (adult) (pediatric); F03.90 Unspecified dementia, unspecified severity, without behavioral disturbance, psychotic disturbance, mood disturbance, and anxiety; J32.9 Chronic sinusitis, unspecified; Z95.5 Presence of coronary angioplasty implant and graft; Z95.1 Presence of aortocoronary bypass graft; Z98.52 Vasectomy status; I25.2 Old myocardial infarction; Z87.81 Personal history of (healed) traumatic fracture; Z86.73 Personal history of transient ischemic attack (TIA), and cerebral infarction without residual deficits; Z87.891 Personal history of nicotine dependence; Z79.82 Long term (current) use of aspirin; Z79.899 Other long term (current) drug therapy
CPT/HCPCS: 10081

== ENCOUNTER → 2020-02-15 | Outpatient (CLI) | payer OTHER ==
[~2020-02-15] MED LIST changes: +DONEPEZIL HCL 55 M1 PO; +GLUCOPHAGE1000 MG PO; +METOPROLOL SUCC50 MG PO; +QUETIAPINE FUMA25 MG PO; +SERTRALINE HCL50 MG PO
== END ==
LOC: SJCVC 15:13
PROVIDERS: ATTEND Internal Medicine Cardiovascular Disease
DX: I49.8 Other specified cardiac arrhythmias (principal); I25.700 Atherosclerosis of coronary artery bypass graft(s), unspecified, with unstable angina pectoris; I10 Essential (primary) hypertension; I47.1 Supraventricular tachycardia; E78.00 Pure hypercholesterolemia, unspecified; I34.0 Nonrheumatic mitral (valve) insufficiency; R94.31 Abnormal electrocardiogram [ECG] [EKG]

== ENCOUNTER → 2020-08-15 | Outpatient (CLI) | payer OTHER | LOC: SJCVC 15:43 | PROVIDERS: ATTEND Internal Medicine Cardiovascular Disease | DX: R94.31 Abnormal electrocardiogram [ECG] [EKG] (principal); I25.700 Atherosclerosis of coronary artery bypass graft(s), unspecified, with unstable angina pectoris; I10 Essential (primary) hypertension; E78.00 Pure hypercholesterolemia, unspecified; I47.1 Supraventricular tachycardia; E11.9 Type 2 diabetes mellitus without complications; I48.0 Paroxysmal atrial fibrillation; G47.33 Obstructive sleep apnea (adult) (pediatric); Z88.1 Allergy status to other antibiotic agents; Z79.82 Long term (current) use of aspirin; Z79.899 Other long term (current) drug therapy; Z87.891 Personal history of nicotine dependence ==

== ENCOUNTER → 2021-02-15 | Outpatient (CLI) | payer OTHER | LOC: SJCVCIMAG 07:16 | PROVIDERS: ATTEND Internal Medicine Cardiovascular Disease | DX: R94.31 Abnormal electrocardiogram [ECG] [EKG] (principal); I08.1 Rheumatic disorders of both mitral and tricuspid valves; I49.9 Cardiac arrhythmia, unspecified; I10 Essential (primary) hypertension; I25.10 Atherosclerotic heart disease of native coronary artery without angina pectoris; E78.00 Pure hypercholesterolemia, unspecified; R60.9 Edema, unspecified; E78.5 Hyperlipidemia, unspecified; G47.33 Obstructive sleep apnea (adult) (pediatric); E11.9 Type 2 diabetes mellitus without complications; G47.30 Sleep apnea, unspecified; D64.9 Anemia, unspecified; Z79.82 Long term (current) use of aspirin; Z79.84 Long term (current) use of oral hypoglycemic drugs; Z79.899 Other long term (current) drug therapy; Z87.891 Personal history of nicotine dependence; Z88.8 Allergy status to other drugs, medicaments and biological substances ==

== ENCOUNTER 2021-03-10 20:28 | Emergency (ER) | payer OTHER ==
[~2021-03-10] VITALS: Ht 175.3 cm; Wt 74.8 kg
--- NOTE | ~2021-03-10 | EMS ---
[facility] [address] [place] [address] EMS Patient Care Report Name: STORM SPEARS Room #: DEP REJI Serrano#: [id number] Admission: 03/10/21 Attend Phys: Discharge: 03/10/21 Date of : 37 Report #: [id number] THIS REPORT FOR: //name// Report Transmitted: 03/13/2021 09:47 EMS Care Summary [place], [place]/[facility] Incident [id number] @ 03/10/2021 19:31 Incident Location [address] [place], [place] [id number] Patient STORM SPEARS Male, 85 Years 1935 Patient Address [address] [place], [place] [id number] Patient History Cardiac - Stent,Coronary Artery Bypass Graft (CABG),Brain Tumor,Type 2 Diabetes, Patient Allergies No known allergies, Patient Medications Pantoprazole, Bupropion, Finasteride, ASA, Metformin, Citalopram, Metoprolol, Methadone, Atorvastatin, Trazodone, Chief Complaint WITHDRAWL SYMPTOMS Disposition Transported No Lights/[place] Dispatch Reason Sick Person Transported To [facility] Narrative M41 DISPATCHED TO A SICK PERSON. [facility] [address] [place] [address] EMS Patient Care Report Name: STORM SPEARS Room #: DEP ER Zach#: [id number] Admission: 03/10/21 Attend Phys: Discharge: 03/10/21 Date of : 39 Report #: [id number] M41 AOS AND FOUND A MALE PT SITTING IN THE CHAIR. PTS STATES THAT SHE BELIEVES THAT THE PT IS WITHDRAWLING BECAUSE HE HAS NOT HAD HIS METHADONE FOR HIS PAIN FOR A COUPLE OF DAYS. THE PT STATES THAT HE HAS A HEADACHE AND PT IS ALSO SEEN TO HAVE TREMORS. 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 THE PT DOES HAVE A FENTANYL PATCH ON HIS R SHOULDER WHICH HE SAYS HAS NOT HELPED AT ALL. PT STATES THAT HIS HEADACHE IS HIS ONLY COMPLAINT. PT MOVED TO THE COT VIA STAIRCHAIR. VITALS OBTAINED. BGA OBTAINED. M[address] [facility]. EN ROUTE PT REMAINED STABLE. REPORT GIVEN TO LANDON PULIDO. SIGNATURES OBTIANED. I SIGNED FOR PT BECAUSE PT WAS UNABLE TO DO SO BECAUSE OF HIS TREMORS. TRANSFER OF CARE TOOK PLACE. M41 IN SERVICE. 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 Initial Vitals @19:53P: 102,BP: 172/90,CO: 7,SpO2: 99, @20:03P: 82,SpO2: 80, @20:06P: 94,BP: 185/120,SpO2: 100, @19:52P: 115,R: 18,BP: 169/120,Pain: 8/10,GCS: 15,Glucose: 198,SpO2: 95,Revised Trauma: 12, @20:08P: 87,R: 18,BP: 199/92,Pain: 8/10,SpO2: 96, Assessments @20:15MENTAL:Person Oriented,Event Oriented,Time Oriented,Place Oriented,SKIN:HEENT:Head/Face: Other,Neck/Airway: No Abnormalities,LUNG SOUNDS:General: No Abnormalities,ABDOMEN:General: No Abnormalities,PELVIS//GI:No Abnormalities,EXTREMITIES:Capillary Refill: Right Upper: < 2 Sec,Left Arm: No Abnormalities,Right Arm: No Abnormalities,Left Leg: No Abnormalities,Right Leg: No Abnormalities,PULSE:Radial: 2+ Normal,NEURO:Tremors, Impression Opioid related disorders Procedures @20:12 ALS Assessment Response: UnchangedSucceeded [facility] [address] [place] [address] EMS Patient Care Report Name: JEN SPEARSACE [place] Room #: DEP Zach#: [id number] Admission: 03/10/21 Attend Phys: Discharge: 03/10/21 Date of : 39 Report #: [id number] Timeline 19:29,Call Received 19:29,Dispatch Notified 19:31,Dispatched 19:31,En Route 19:41,On Scene 19:51,At Patient 19:52,BP: 169/120 M,PULSE: 115,RR: 18 R,SPO2: 95 Ox,ETCO2: ,B,PAIN: 8,GCS: 15, 19:53,BP: 172/90 M,PULSE: 102,RR: R,SPO2: 99 Ox,ETCO2: ,BG: ,PAIN: ,GCS: , 20:03,BP: / M,PULSE: 82,RR: R,SPO2: 80 Ox,ETCO2: ,BG: ,PAIN: ,GCS: , 20:06,BP: 185/120 M,PULSE: 94,RR: R,SPO2: 100 Ox,ETCO2: ,BG: ,PAIN: ,GCS: , 20:08,BP: 199/92 M,PULSE: 87,RR: 18 R,SPO2: 96 Ox,ETCO2: ,BG: ,PAIN: 8,GCS: , 20:08,Depart Scene 20:12,ALS Assessment,Response: UnchangedSucceeded, 20:21,At Destination 20:32,Call Closed Disclaimer v1.1 Copyright 2020 [employer] This EMS Care Summary contains data elements from the applicable legal record (which may be displayed differently). It is designed to provide pertinent information for the following purposes: continuity of care, clinical quality, and state data reporting. The complete legal record is available to ED staff and administrators of the receiving hospital in [employer]'s Patient Tracker. All data is provided "as is."
[2021-03-10] MEDS ORDERED: PERCOCET 5-3251 EACH PO (21:35)
[2021-03-10 22:05] VITALS: BP 176/101
== END 2021-03-10 22:06 | disposition home or self-care (01) ==
LOC: ER 20:28
DX: F11.23 Opioid dependence with withdrawal (principal); F32.9 Major depressive disorder, single episode, unspecified; I10 Essential (primary) hypertension; E78.5 Hyperlipidemia, unspecified; E11.9 Type 2 diabetes mellitus without complications; M19.90 Unspecified osteoarthritis, unspecified site; Z98.890 Other specified postprocedural states; Z79.82 Long term (current) use of aspirin; Z79.899 Other long term (current) drug therapy; Z87.891 Personal history of nicotine dependence